=== PATIENT | female | born 1970 | race Caucasian/White ===

== ENCOUNTER → 2020-10-03 | Outpatient (CLI) | payer BC, OTHER | LOC: EMI 09-27 09:00 | DX: R90.89 Other abnormal findings on diagnostic imaging of central nervous system (principal); G35 Multiple sclerosis; M47.812 Spondylosis without myelopathy or radiculopathy, cervical region; M50.222 Other cervical disc displacement at C5-C6 level | CPT/HCPCS: 70553; 72156; A9577 ==

== ENCOUNTER → 2020-10-23 | Outpatient (CLI) | payer BC, OTHER | LOC: MRI 10-07 08:30 | DX: M35.9 Systemic involvement of connective tissue, unspecified (principal); G35 Multiple sclerosis; M47.817 Spondylosis without myelopathy or radiculopathy, lumbosacral region | CPT/HCPCS: 72146; 72148 ==